=== PATIENT | male | born 1950 | race Caucasian/White ===

== ENCOUNTER → 2024-04-03 | Outpatient (CLI) | payer MEDICARE, SELFPAY ==
--- NOTE | 2024-04-03 11:12 | XR_ITS ---
Examination: PA lateral chest 2 views TECHNIQUE: Upright PA lateral chest 2 views Exam date and time: April 03, 2024 1117 hours Comparison October 18, 2021 INDICATIONS: Congestion beginning one month ago FINDINGS: Mild enlargement left ventricle CABG Cardiac leads adequate position Pleural likely scarring at the left base No interval pneumonia or pulmonary edema IMPRESSION: No interval pneumonia or pulmonary edema
== END | disposition home or self-care (01) ==
PROVIDERS: PCP Family Medicine; Referring Provider Internal Medicine; Visit Provider Internal Medicine
DX: R09.89 Other specified symptoms and signs involving the circulatory and respiratory systems (principal)
CPT/HCPCS: 71046

== ENCOUNTER → 2024-05-21 | Outpatient (CLI) | payer MEDICARE, SELFPAY ==
--- NOTE | 2024-05-21 09:54 | XR_ITS ---
Examination: PA lateral chest 2 views TECHNIQUE: Upright AP lateral chest 2 views Exam date and time: May 21, 2024 1420 hours Comparison April 03, 2024 INDICATIONS: Acute bronchitis congestion beginning 3 weeks ago. FINDINGS: Mild to moderate enlargement left ventricle CABG Mild vascular congestion Blunting of the left lateral costophrenic angle No lobar pneumonia or pulmonary edema IMPRESSION: No lobar pneumonia or pulmonary edema
== END | disposition home or self-care (01) ==
LOC: CDIM 09:11
PROVIDERS: Referring Provider Nurse Practitioner Family; Visit Provider Nurse Practitioner Family
DX: R09.89 Other specified symptoms and signs involving the circulatory and respiratory systems (principal)
CPT/HCPCS: 71046

== ENCOUNTER → 2024-06-11 | Outpatient (CLI) | payer MEDICARE, SELFPAY ==
--- NOTE | 2024-06-11 12:45 | XR_ITS ---
Examination: PA lateral chest 2 views TECHNIQUE: Upright PA lateral chest 2 views Exam date and time: June 11, 2024 1433 hours INDICATIONS: Coughing beginning 3 days ago. FINDINGS: Mild opacity on the lateral view obscuring detail posterior left hemidiaphragm Mild to moderate enlargement left ventricle CABG Cardiac leads satisfactory position IMPRESSION: Early pneumonia left base
== END | disposition home or self-care (01) ==
LOC: CDIM 12:34
PROVIDERS: PCP Family Medicine; Referring Provider Nurse Practitioner Family; Visit Provider Nurse Practitioner Family
DX: J18.9 Pneumonia, unspecified organism (principal)
CPT/HCPCS: 71046